=== PATIENT | male | born 1950 | race Caucasian/White ===

== ENCOUNTER 2023-06-29 08:31 | Emergency (ER) | payer MEDICARE, SELFPAY ==
--- NOTE | ~2023-06-29 | CT_ITS ---
EXAMINATION: CT LUMBAR SPINE WITHOUT CONTRAST CLINICAL INFORMATION: Lumbar back pain after fall COMPARISON: None available. TECHNIQUE: Continuous helical imaging obtained through the lumbar spine without IV contrast. Reconstructed images performed in the coronal and sagittal planes. This CT examination was performed using dose optimization techniques as appropriate, variously including the following: *Automated exposure control *Adjustment of mA and/or kV according to patient size (this includes techniques or standardized protocols for targeted exams where dose is matched to indication/reason for exam; i.e. extremities or head) *Use of iterative reconstruction technique DLP; 408.05 mGy-cm FINDINGS: No acute fracture or dislocation. No paravertebral soft tissue swelling or hematomas. Minimal anterolisthesis L4 on L5 without priors for comparison. No significant vertebral body height losses. T11/T12, T12/L1: No spinal canal or neuroforaminal narrowings. L1/L2, L2/L3: Mild disc bulge, ligamentum flavum and facet hypertrophy with mild spinal canal narrowings. L3-L4: Ligamentum flavum and facet hypertrophic changes result in moderate thecal sac narrowing but neuroforamen remain patent. L4/L5: Anterolisthesis with unroofing, ligamentum flavum, facet hypertrophic changes result in moderate thecal sac compression. Likely left disc bulge with neuroforaminal narrowing. L5/S1 disc bulge without significant compromise. SI joints within normal limits. No suspicious osseous lesions. Other: Vascular calcifications nonaneurysmal aorta and iliac arteries. Partial visualization of distended urinary bladder. CT/CT lumbar spine wo IV con IMPRESSION: No acute bony pathology after fall. Degenerative type changes.
--- NOTE | ~2023-06-29 | CT_ITS ---
EXAMINATION: CT CHEST WITHOUT CONTRAST CLINICAL INFORMATION: Fall. Posterior rib pain. COMPARISON: None available. TECHNIQUE: Multidetector volumetric CT imaging of the chest was done. Axial MIP volume rendering provided. Sagittal and coronal reformatted images were obtained. This CT examination was performed using dose optimization techniques as appropriate, variously including the following: *Automated exposure control *Adjustment of mA and/or kV according to patient size (this includes techniques or standardized protocols for targeted exams where dose is matched to indication/reason for exam; i.e. extremities or head) *Use of iterative reconstruction technique DLP: 330 mGy-cm FINDINGS: LUNGS: Mild paraseptal emphysema. 2 mm calcified right upper lobe nodule, axial image 117 series 23. This probably represents a calcified granuloma. Minimal dependent atelectasis at the lung bases. MEDIASTINUM: Upper normal heart size. [id number] coronary artery calcification. No pericardial effusion. Normal caliber thoracic aorta. No adenopathy. CORONARY ARTERY CALCIFICATION: [id number]. PLEURA: There is no pleural effusion. No pleural mass or thickening. AXILLA: No lymphadenopathy. UPPER ABDOMEN: 2 cm low-attenuation liver lesion in the right lobe of the liver. Diverticulosis of the colon. OSSEOUS STRUCTURES: Degenerative changes of the cervical and thoracic spine, left shoulder and right sternoclavicular joint. No acute fracture. Question old lateral lower rib fractures. No acute rib fracture seen. CT/CT chest wo IV con IMPRESSION: No acute findings in the chest. Severe coronary artery calcification. 2 cm liver lesion not compatible with a simple cyst. Followup imaging recommended. Diverticulosis. Fleischner guidelines were followed.
--- NOTE | ~2023-06-29 | CT_ITS ---
EXAMINATION: CT HEAD WITHOUT CONTRAST CLINICAL INFORMATION: Fall. COMPARISON: None available. TECHNIQUE: Contiguous axial imaging was performed from the skull base to vertex without intravenous administration of contrast. This CT examination was performed using dose optimization techniques as appropriate, variously including the following: *Automated exposure control *Adjustment of mA and/or kV according to patient size (this includes techniques or standardized protocols for targeted exams where dose is matched to indication/reason for exam; i.e. extremities or head) *Use of iterative reconstruction technique DLP: 1375.19 mGy-cm FINDINGS: There is no evidence of an extra-axial collection. There is no evidence of intra-axial or extra-axial hemorrhage. The ventricles and extra-axial CSF spaces are appropriate. Bolaños-white matter differentiation is normal. No mass, mass effect or infarct. No skull fracture. Visualized paranasal sinuses, mastoid air cells and middle ear are clear. CT/CT head/brain wo IV con IMPRESSION: Unremarkable exam.
[2023-06-29 08:34] VITALS: BP 173/102; PULSE 59; RESP 26; TEMP 36.3; O2SAT 97; BMI 26.3
--- NOTE | 2023-06-29 08:42 | ECG_ITS ---
Test Reason : Syncope Blood Pressure : / mmHG Vent. Rate : 056 BPM Atrial Rate : 056 BPM P-R Int : 126 ms QRS Dur : 090 ms QT Int : 414 ms P-R-T Axes : 000 078 020 degrees QTc Int : 399 ms Sinus bradycardia Inferior infarct , age undetermined RSR' or QR pattern in V1 suggests right ventricular conduction delay Abnormal ECG No previous ECGs available Referred By: Crys Moreno Electronically Signed By:ROSI MORENO
--- NOTE | 2023-06-29 08:47 | ED.SYNCOPE ---
HPI - Syncope General Chief Complaint: Syncope Stated Complaint: Fall back pain Time Seen by Provider: 06/29/23 08:42 Source: patient and family Mode of arrival: ambulatory Limitations: no limitations History of Present Illness HPI narrative: 72 yo male denies PMH not on medications not on thinners went to get off the toilet in middle of the night thinks he got up too fast after urinating and felt dizzy with tunnel vision he woke up on the floor and his yelling at him. She heard him fall right away. He injured his posterior back and now has severe pain and spasms - no b/b incontinence no saddle anesthesia. He denies other injury head or neck but had a significant fall where he broke the toilet seat and moved the base about 1 inch. He states he cannot tolerate the back pain right now MD complaint: collapsed Onset (ago): hour(s) (couple) Prodromal symptoms: vision changes and lightheaded Witnessed: No Context: after urination and standing up Injuries sustained associated with event: back Current symptoms: other (back pain at site of injury) Treatments prior to arrival: none Related Data Previous Rx's Medication Instructions Recorded diazepam 5 mg tablet (Valium) 5 mg PO TID PRN muscle spasm #12 06/29/23 tabs lidocaine 5 % topical patch 1 patch topical DAILY #30 ea 06/29/23 morphine 15 mg immediate release 15 mg PO Q6H PRN pain #12 tabs 06/29/23 tablet ondansetron 4 mg disintegrating 4 mg PO Q8H PRN nausea and 06/29/23 tablet vomiting #20 tabs Allergies Allergy/AdvReac Type Severity Reaction Status Date / Time sulfamethoxazole Allergy Intermediate Fever Verified 06/29/23 08:34 [From Bactrim] trimethoprim [From Bactrim] Allergy Intermediate Fever Verified 06/29/23 08:34 Review of Systems Review of Systems: Constitutional : No Weight loss, No Fever, No Chills, ENT/Mouth : No Hearing loss, No Ear Pain, No Nasal Congestion, No Sinus Pain, No Hoarseness, No sore throat, No Rhinorrhea, No Swallowing Difficulty Cardiovascular : No Chest Pain, No SOB Respiratory : No Cough, No Dyspnea Gastrointestinal : No Nausea, No Vomiting, No Diarrhea, No abdominal Pain, No Hematochezia, No Melena Genitourinary : No Dysuria, No Urinary Frequency, No Hematuria, No Urinary Incontinence, Musculoskeletal : positive back pain Skin : No Skin Lesions, No rash Neuro : No Weakness, No Numbness, No Paresthesias, no loss of bowel or bladder, pos syncope incontinence, no saddle anesthesia All other systems reviewed and are negative [facility] Past Medical History Attestation statement: The following information was validated with the patient. Source: obtained from family Medical History No pertinent past medical history Social History Social History (Updated 06/29/23 @ 08:51 by Crys Moreno DO) Patient Tobacco Use Status: Never used Tobacco Smoked in Last 30 Days: No Use of substances other than those prescribed or required for medical reasons: Yes Substance Use Type: Marijuana Advance Directives: Yes Advance Directives Information Provided: Yes Advance Directives on File: No Physical Exam Vital Signs: Vital Signs: Last Vital Signs Temp 98.4 F 06/29/23 11:10 Pulse 56 06/29/23 11:10 Resp 12 06/29/23 11:10 BP 149/85 H 06/29/23 11:10 Pulse Ox 95 06/29/23 11:10 O2 Del Method Room Air 06/29/23 11:10 BMI result Body Mass Index 26.3 Appearance: Alert. Oriented X3. in pain mild acute distress. Eyes: Pupils equal, round and reactive to light. ENT: Pharynx normal. atraumatic Neck: Normal inspection. Neck supple. CVS: Normal heart rate and rhythm. Pulses normal. Respiratory: No respiratory distress. Breath sounds normal. Abdomen: Soft and nontender. Back: ttp along thoracolumbar junction in the midline with contusion noted Skin: Skin warm and dry. Normal skin color. Normal skin turgor. Extremities: No lower extremity edema. No calf ttp Neuro: Oriented X 3. No motor deficit. No sensory deficit. Course Course Course Narrative: pain improved with IV dilaudid Reevaluation(s) Reevaluation #1: up and ambulating to and from bathroom without help can be managed at home with oral medications aware of coronary calfications Medications Administered Discontinued Medications Generic Name Dose Route Start Last Admin Trade Name Freq PRN Reason Stop Dose Admin Hydromorphone HCl 1 mg 06/29/23 08:46 06/29/23 09:27 Hydromorphone Hcl 0.5 Mg/0.5 Ml Syringe IVPUSH 06/29/23 08:47 1 mg ONCE ONE Administration Protocol Sodium Chloride 500 mls @ 500 mls/hr 06/29/23 09:00 06/29/23 10:23 Ns IV 06/29/23 09:59 Infused .Q1H IQRA Infusion Lorazepam 0.5 mg 06/29/23 10:25 06/29/23 10:55 Lorazepam 2 Mg/Ml Vial IVPUSH 06/29/23 10:26 0.5 mg STAT STA Administration Ondansetron HCl 4 mg 06/29/23 08:46 06/29/23 09:25 Ondansetron Hcl 4 Mg/2 Ml Vial IVPUSH 06/29/23 08:47 4 mg ONCE ONE Administration Medical Decision Making Medical Decision Making [facility] Narrative: 72 yo male with no sig PMH here with syncopal event after urination and standing had a prodrome - denies CP/SOB. He did fall with LOC and no seizure activity reported he suffered injury to midline of his back in thoracolumbar junction. At this time he is NV intact distally and no signs of CE. Will obtain basic labs, CT scan of head, chest and lumbar spine. IV dilaudid ordered for pain. Differential Diagnosis Differential Diagnoses: The differential diagnosis associated with the presentation includes syncope, orthostatic hypotension, vasovagal, dehydration, back contusion, rib fracture, vertebral fracture Admission/Observation Consideration of admission/observation: Escalation of care including admission/observation considered up and walking can take oral pain medications Lab Data [facility] Lab Attestation statement: I reviewed the patient's lab results. trop flat 06/29/23 08:59 06/29/23 08:59 Labs: Lab Results 06/29/23 06/29/23 06/29/23 Range/Units 08:59 10:18 11:02 WBC 13.4 H (4.8-10.8) X10*3/uL RBC 5.18 (4.60-5.80) X10*6/uL Hgb 15.8 (14.0-18.0) g/dl Hct 47.3 (42.0-52.0) % MCV 91.3 (80.0-98.0) fL MCH 30.5 (27.0-33.0) pg MCHC 33.4 (31.0-36.0) g/dl RDW 13.1 (11.0-16.0) % Plt Count 270 (160-400) X10*3/uL MPV 11.4 (9.4-12.4) fL Immature Gran % (Auto) 0.4 (0.0-0.4) % Neut % (Auto) 86.3 H (45-73) % Lymph % (Auto) 7.9 L (20-40) % Lanier % (Auto) 5.1 (2-11) % Eos % (Auto) 0.1 (0-4) % Baso % (Auto) 0.2 (0-2) % Lymph # (Auto) 1.1 L (1.2-4.9) X10*3/uL Lanier # (Auto) 0.7 (0.1-1.2) X10*3/uL Eos # (Auto) 0.0 (0.0-0.4) X10*3/uL Baso # (Auto) 0.0 (0.0-0.2) X10*3/uL Abs Immat Gran (auto) 0.06 H (0.00-0.03) X10*3/uL Absolute Neuts (auto) 11.6 H (2.0-8.3) x10*3/uL Absolute Nucleated RBC 0.000 (0.0-0.012) X10*3/uL Nucleated RBC % (auto) 0.0 (0.0-0.2) /100WBC PT 12.5 (11.1-13.3) SEC INR 1.0 (0.9-1.1) Sodium 139 (135-145) mmol/L Potassium 4.8 (3.3-5.1) mmol/L Chloride 104 (96-108) mmol/L Carbon Dioxide 24 (22-29) mmol/L Anion Gap 16 (12-20) BUN 12 (9-16) mg/dL Creatinine 0.99 (0.5-1.4) mg/dL Estim Creat Clear Calc 60.8 Estimated GFR > 60 Random Glucose 155 H (60-115) mg/dL Calcium 10.5 H (8.4-10.2) mg/dL Magnesium 2.3 (1.6-2.6) mg/dL Total Bilirubin 1.0 (0.0-1.0) mg/dL Direct Bilirubin 0.3 (0.0-0.5) mg/dL AST 23 (5-37) U/L ALT 19 (0-40) U/L Alkaline Phosphatase 56 (39-117) U/L Total Creatine Kinase 77 (38-174) U/L Troponin I High Sens 24.8 24.1 (<3.5-35.0) ng/L Total Protein 7.9 (6.5-8.0) g/dL Albumin 4.8 (3.5-5.0) g/dL Urine Color Yellow Urine Appearance Clear Urine pH 7.5 (5.0-9.0) Ur Specific Leander 1.010 (1.005-1.025) Urine Protein Negative (Neg-Trace) mg/dL Urine Glucose (UA) Negative (Negative) mg/dL Urine Ketones Negative (Negative) mg/dL Urine Blood Negative (Negative) Urine Nitrite Negative (Negative) Ur Leukocyte Esterase Negative (Negative) Independent Interpretation I performed an independent interpretation of an: EKG and CT Scan (no trauma) Interpretation: Rate: 56 Rhythm: sinus bradycardia [place]: normal Normal P waves. Normal OLIVE. Normal QRS complex. ST T wave : inverted t wave V1-V2, no SET qTC: normal prior studies: no acute ischemia The study has been interpreted contemporaneously by me. . Radiology Impression Discussion of test interpretation with radiology: I have reviewed the radiologist's reading. Independent Historian Clinical information obtained from an independent historian. History obtained from or confirmed by: Spouse Prescription Management I considered prescription management with: Pain Medication Critical Care Time Critical Care Time Critical Care Time: Yes Total Critical Care Time: 35 Attestation: IV pain medicaitons, IV dilaudid for pain, IV ativan - improved with pain, trauma CT scans I attest to this time spent taking care of the patient Discharge Plan Discharge Clinical Impression: Syncope Qualifiers: Syncope type: unspecified Qualified Code(s): R55 - Syncope and collapse Back contusion Qualifiers: Encounter type: initial encounter Laterality: unspecified laterality Qualified Code(s): S20.229A - Contusion of unspecified back wall of thorax, initial encounter Patient Disposition: Home, Self-Care Instructions: Syncope (ED), Contusion in Adults (ED) Additional Instructions: stay hydrated when standing sit on edge of bed or toilet and wait 30 seconds then get up. return for chest pain, trouble breathing, dizziness, black or bloody stools. 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 you do have chronic disc bulges seen on exam. return for numbness, weakness, loss of control of bowel or bladder use heat or ice for pain. talk to your doctor about physical therapy Prescriptions: New morphine 15 mg tablet 15 mg PO Q6H PRN (Reason: pain) Qty: 12 0RF Rx Instructions: partial fill okay; Partial Fill upon patient request. ondansetron 4 mg tablet,disintegrating 4 mg PO Q8H PRN (Reason: nausea and vomiting) Qty: 20 0RF diazepam [Valium] 5 mg tablet 5 mg PO TID PRN (Reason: muscle spasm) Qty: 12 0RF Rx Instructions: partial fill is okay lidocaine 5 % adhesive patch,medicated 1 patch topical DAILY Qty: 30 0RF Rx Instructions: leave on most painful area for up to 12 hrs Referrals: Michael Caceres MD [Physician] - (call to schedule appointment)
[2023-06-29 09:04] LABS: MANUAL DIFF FLAG NO
[2023-06-29 09:06] LABS: Basophils Percent Auto 0.2 % (0-2); Eosinophils Percent Auto 0.1 % (0-4); Hematocrit 47.3 % (42.0-52.0); Hemoglobin 15.8 g/dl (14.0-18.0); Imm Gran Abs Auto 0.06 X10*3/uL (0.00-0.03); Imm Gran Pct Auto 0.4 % (0.0-0.4); Lymphocytes Absolute Auto 1.1 X10*3/uL (1.2-4.9); Lymphocytes Percent Auto 7.9 % (20-40); Mean Corpuscular HGB Conc 33.4 g/dl (31.0-36.0); Mean Corpuscular Hemoglobin 30.5 pg (27.0-33.0); Mean Corpuscular Volume 91.3 fL (80.0-98.0); Mean Platelet Volume 11.4 fL (9.4-12.4); Monocytes Absolute Auto 0.7 X10*3/uL (0.1-1.2); Monocytes Percent Auto 5.1 % (2-11); Neutrophils Absolute Auto 11.6 x10*3/uL (2.0-8.3); Neutrophils Percent Auto 86.3 % (45-73); Platelet Count 270 X10*3/uL (160-400); Red Blood Count 5.18 X10*6/uL (4.60-5.80); Red Cell Distribution Width 13.1 % (11.0-16.0); White Blood Count 13.4 X10*3/uL (4.8-10.8)
[2023-06-29 09:13] LABS: Prothrombin Time 12.5 SEC (11.1-13.3)
[2023-06-29] MEDS: 0.9 % Sodium Chloride 500 ML IV (09:23)
[2023-06-29] MEDS: ondansetron HCL 4 MG/2 ML VIAL IVPUSH (09:25)
[2023-06-29] MEDS: HYDROmorphone HCl 0.5 MG/0.5 ML SYRINGE 1 MG IVPUSH (09:27)
[2023-06-29 09:31] LABS: Alanine Aminotransferase 19 U/L (0-40); Albumin Level 4.8 g/dL (3.5-5.0); Alkaline Phosphatase 56 U/L (39-117); Anion Gap 16 (12-20); Aspartate Amino Transferase 23 U/L (5-37); Bilirubin Direct 0.3 mg/dL (0.0-0.5); Blood Urea Nitrogen 12 mg/dL (9-16); Calcium 10.5 mg/dL (8.4-10.2); Carbon Dioxide 24 mmol/L (22-29); Chloride 104 mmol/L (96-108); Creatinine Clr Calc Pharmacy 60.8; Estimated Glomerular Filt Rate > 60; Glucose Random 155 mg/dL (60-115); Magnesium 2.3 mg/dL (1.6-2.6); Potassium 4.8 mmol/L (3.3-5.1); Sodium 139 mmol/L (135-145); Total Protein 7.9 g/dL (6.5-8.0)
[2023-06-29 09:34] LABS: Troponin-I High Sensitivity 24.8 ng/L (<3.5-35.0)
--- NOTE | 2023-06-29 10:08 | PC.NURSE ---
pt aox4. describes pain in back as severe spasm and reported that they were unable to walk properly, that they crawled to a chair after falling. Labs drawn, EKG done, IV inserted. fluids infusing per mar, and medications given. after dilaudid pt was able to ease himself into lying position from seating. scans pending.
[2023-06-29 10:19] VITALS: BP 144/88; PULSE 56; RESP 16; O2SAT 96
[2023-06-29 10:21] VITALS: O2SAT 96
[2023-06-29 10:33] LABS: Appearance Urine Clear; Color Urine Yellow; Glucose Urine UA Negative (Negative); Leukocyte Esterase Urine Negative (Negative); Nitrite Urine Negative (Negative); PH 7.5 (5.0-9.0); Urine Blood Negative (Negative); Urine Ketones Negative (Negative); Urine Protein Negative (Neg-Trace)
[2023-06-29] MEDS: LORazepam 2 MG/ML VIAL 0.5 MG IVPUSH (10:55)
[2023-06-29 11:10] VITALS: BP 149/85; PULSE 56; RESP 12; TEMP 36.9; O2SAT 95
[2023-06-29 11:37] LABS: Troponin-I High Sensitivity 24.1 ng/L (<3.5-35.0)
== END 2023-06-29 13:36 | disposition home or self-care (01) ==
PROVIDERS: Emergency Provider Emergency Medicine; PCP Internal Medicine
DX: R55 Syncope and collapse (principal); S20.224A Contusion of middle back wall of thorax, initial encounter; W18.11XA Fall from or off toilet without subsequent striking against object, initial encounter; Y93.89 Activity, other specified; Y92.012 Bathroom of single-family (private) house as the place of occurrence of the external cause; Y99.9 Unspecified external cause status
CPT/HCPCS: 36415; 70450; 71250; 72131; 80048; 80076; 81003; 82550; 83735; 84484; 85025; 85610; 93005; 96361; 96374; 96375; 99284; 99285; J1170; J2060; J2405